=== PATIENT | male | born 1955 | race Caucasian/White ===

== ENCOUNTER 2019-05-04 20:20 | Emergency (ER) | payer MEDICARE, MEDICAID ==
[2019-05-04 20:20] VITALS: BP 181/87
--- NOTE | 2019-05-04 21:04 | REPVR ---
EXAM: CT Head Without Contrast EXAM DATE/TIME: 05/04/2019 8:46 PM CLINICAL HISTORY: 64 years old, male; Injury or trauma; Fall; Initial encounter; Blunt trauma (contusions or hematomas); Additional info: Fall injury TECHNIQUE: Imaging protocol: Computed tomography images of the head without contrast. Radiation optimization: All CT scans at this facility use at least one of these dose optimization techniques: automated exposure control; mA and/or kV adjustment per patient size (includes targeted exams where dose is matched to clinical indication); or iterative reconstruction. COMPARISON: No relevant prior studies available. FINDINGS: Brain: Normal. No hemorrhage. Unremarkable white matter. No mass effect. Ventricles: Normal. No ventriculomegaly. Bones/joints: Unremarkable. No acute fracture. Sinuses: Mild inflammatory changes in the ethmoid sinuses. Mastoid air cells: Visualized mastoid air cells are well aerated. No mastoid effusion. Soft tissues: Unremarkable. IMPRESSION: No acute intracranial findings. Electronically signed by: Chacho Mathews On 05/04/2019 21:03:54 PM
[2019-05-04] MEDS ORDERED: INDE80CA10 PO (21:12)
[2019-05-04] MEDS ORDERED: COZA100T2 PO (21:12)
[2019-05-04] MEDS ORDERED: TOPA50TA8 PO (21:12)
[2019-05-04] MEDS ORDERED: SERO200T PO (21:12)
[2019-05-04] MEDS ORDERED: LIPI10TA PO (21:12)
[2019-05-04] MEDS ORDERED: MM S100C PO (21:12)
[2019-05-04] MEDS ORDERED: OLAN15TA PO (21:12)
[2019-05-04] MEDS ORDERED: PRIL20TA2 PO (21:12)
[2019-05-04] MEDS ORDERED: ASPI81TA85 PO (21:12)
== END 2019-05-04 22:17 | disposition home or self-care (01) ==
LOC: EDBD 20:20 → M ED 20:20
DX: R29.6 Repeated falls (principal); W18.12XA Fall from or off toilet with subsequent striking against object, initial encounter; Y92.59 Other trade areas as the place of occurrence of the external cause; F20.9 Schizophrenia, unspecified; H54.8 Legal blindness, as defined in USA; Z88.0 Allergy status to penicillin; Z91.010 Allergy to peanuts; Z91.018 Allergy to other foods; Z91.048 Other nonmedicinal substance allergy status; J30.1 Allergic rhinitis due to pollen; Z79.899 Other long term (current) drug therapy; Z79.82 Long term (current) use of aspirin